=== PATIENT | male | born 2000 | race African-American/Black ===

== ENCOUNTER 2020-03-13 19:21 | Emergency (ER) | payer BC ==
[~2020-03-13] VITALS: Ht 175.3 cm; Wt 68.0 kg
[2020-03-13] MEDS ORDERED: IV NORMAL SALINE 1,000ML 1,000 ML IV SCH ×2 (19:33)
[2020-03-13 19:45] VITALS: BP 157/92
--- NOTE | 2020-03-13 19:51 | PHYS DOC ---
Past History Past Medical History: No Pertinent History Adult General Chief Complaint Chief Complaint: DEHYDRATION HPI HPI Patient is a 19-year-old male who presents for lightheadedness. 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 Patient reports playing basketball for several hours and upon completion of playing, was profoundly lightheaded, fatigued, and sweating profusely. Teammates and head track coach were concerned and subsequently transported patient to our ER for further evaluation. Of note, patient up-to-date on all vaccinations, has no known medical issues, denies any illicit substance abuse, denies any recent fever or prodromal symptoms prior to playing today, no COVID- 19 contacts Review of Systems Review of Systems Fourteen body systems of review of systems have been reviewed. See HPI for pertinent positives and negative responses, other ordonez all other systems are negative, non-pertinent or non-contributory Current Medications Current Medications Current Medications Medications (Trade) Dose Ordered Sig/Clay Start Time Stop Time Status Last Admin Dose Admin Sodium Chloride 1,000 ml @ 100 mls/hr Q10H 03/13/20 19:33 03/14/20 05:32 Allergies Allergies Allergies Coded Allergies Type Severity Reaction Last Updated Verified No Known Drug Allergies 03/13/20 No Physical Exam Physical Exam Constitutional: Well developed, well nourished, moderately distressed, diaphoretic appearing HENT: Normocephalic, atraumatic, bilateral external ears normal, oropharynx moist, no oral exudates, nose normal. Eyes: PERRLA, EOMI, conjunctiva normal, no discharge. Neck: Normal range of motion, no tenderness, supple, no stridor. Cardiovascular: Heart rate tachycardic, sinus rhythm, no murmurs rubs or gallops Lungs & Thorax: Bilateral breath sounds clear to auscultation Abdomen: Bowel sounds normal, soft, no tenderness, no masses, no pulsatile masses. Nonsurgical abdomen, no peritoneal signs Skin: Diaphoretic, clammy, no erythema, no rash. Back: No tenderness, no CVA tenderness. Extremities: No tenderness, no cyanosis, no clubbing, ROM intact, no edema. Neurologic: Alert and oriented X 3, grossly normal motor & sensory function, no focal deficits noted. Psychologic: Affect normal, judgement normal, mood normal. Current Patient Data Vital Signs Vital Signs Date Time Temp Pulse Resp B/P (MAP) Pulse Ox O2 Delivery O2 Flow Rate FiO2 03/13/20 19:45 98.6 133 24 157/92 (113) 100 Lab Results Laboratory Tests Test 03/13/20 19:23 03/13/20 22:25 03/13/20 22:50 White Blood Count 9.0 x10^3/uL (4.0-11.0) Red Blood Count 6.02 x10^6/uL (4.30-5.70) Hemoglobin 17.2 g/dL (13.0-17.5) Hematocrit 51.9 % (39.0-53.0) Mean Corpuscular Volume 86 fL (79-100) Mean Corpuscular Hemoglobin 29 pg (25-35) Mean Corpuscular Hemoglobin Concent 33 g/dL (31-37) Red Cell Distribution Width 13.5 % (11.5-14.5) Platelet Count 329 x10^3/uL (140-400) Neutrophils (%) (Auto) 68 % (31-73) Lymphocytes (%) (Auto) 23 % (24-48) Monocytes (%) (Auto) 7 % (0-9) Eosinophils (%) (Auto) 0 % (0-3) Basophils (%) (Auto) 1 % (0-3) Neutrophils # (Auto) 6.1 x10^3uL (1.8-7.7) Lymphocytes # (Auto) 2.1 x10^3/uL (1.0-4.8) Monocytes # (Auto) 0.6 x10^3/uL (0.0-1.1) Eosinophils # (Auto) 0.0 x10^3/uL (0.0-0.7) Basophils # (Auto) 0.1 x10^3/uL (0.0-0.2) Sodium Level 142 mmol/L (136-145) 139 mmol/L (136-145) Potassium Level 3.4 mmol/L (3.5-5.1) 4.6 mmol/L (3.5-5.1) Chloride Level 101 mmol/L (98-107) 106 mmol/L (98-107) Carbon Dioxide Level 14 mmol/L (21-32) 25 mmol/L (21-32) Anion Gap 27 (6-14) 8 (6-14) Blood Urea Nitrogen 13 mg/dL (8-26) 12 mg/dL (8-26) Creatinine 1.9 mg/dL (0.7-1.3) 1.2 mg/dL (0.7-1.3) Estimated GFR (Cockcroft-Gault) 55.5 94.4 BUN/Creatinine Ratio 7 (6-20) Glucose Level 109 mg/dL (70-99) 103 mg/dL (70-99) Calcium Level 10.9 mg/dL (8.5-10.1) 8.8 mg/dL (8.5-10.1) Total Bilirubin 1.2 mg/dL (0.2-1.0) Aspartate Amino Transf (AST/SGOT) 28 U/L (15-37) Alanine Aminotransferase (ALT/SGPT) 24 U/L (16-63) Alkaline Phosphatase 63 U/L (46-116) Creatine Kinase 410 U/L (39-308) Troponin I Quantitative < 0.017 ng/mL (0-0.055) Total Protein 9.0 g/dL (6.4-8.2) Albumin 5.0 g/dL (3.4-5.0) Albumin/Globulin Ratio 1.3 (1.0-1.7) Urine Collection Type Unknown Urine Color Yellow Urine Clarity Clear Urine pH 5.5 Urine Specific [place] 1.010 Urine Protein Neg (NEG-TRACE) Urine Glucose (UA) Neg mg/dL (NEG) Urine Ketones (Stick) 15 mg/dL (NEG) Urine Blood Neg (NEG) Urine Nitrite Neg (NEG) Urine Bilirubin Neg (NEG) Urine Urobilinogen Dipstick 0.2 mg/dL (0.2 mg/dL) Urine Leukocyte Esterase Neg (NEG) Urine RBC 0 /HPF (0-2) Urine WBC 1-4 /HPF (0-4) Urine Squamous Epithelial Cells Occ /LPF Urine Bacteria 0 /HPF (0-FEW) EKG EKG EKG ordered and interpreted by myself at 1950 hrs. as narrow complex tachycardia at 115 bpm, [place] 110 otherwise intervals unremarkable, right axis deviation, no STEMI Radiology/Procedures Radiology/Procedures PROCEDURE: PORTABLE CHEST 1V PORTABLE CHEST 1V History: Shortness of breath Comparison: None. Findings: Single view of the chest is submitted. There is no infiltrate, pneumothorax, or effusion. The pericardial cardiac silhouette is within normal limits in size. Impression: 1. There is no radiographic evidence of acute cardiopulmonary disease. Electronically signed by: Lane Funk MD (03/13/2020 8:02 PM) [facility] Course & Med Decision Making Course & Med Decision Making Patient seen on immediate ER arrival Airway patent, breathing mildly labored, patient tachycardic otherwise vital signs unremarkable Comprehensive history and physical exam obtained, pertinent diagnostic studies ordered IV access obtained, copious IV fluid resuscitation ensued given patient's clinical dehydrated state Patient assessed several times throughout ER visit with improvement in symptomology. Discussed findings with patient, specifically acute kidney injury findings likely due to dehydration secondary to prolonged basketball playing and he Patient tolerated IV fluid resuscitation well. Repeat kidney function showed marked improvement back to baseline levels ER course reviewed with patient, patient eager for discharge home, at this time I feel it is appropriate given that he is at his baseline state, Strict return precautions were discussed at length with patient with good understanding, all questions and concerns addressed prior to ER departure home in stable condition Dragopal Disclaimer Dragopal Disclaimer This electronic medical record was generated, in whole or in part, using a voice recognition dictation system. Departure Departure: Impression: Primary Impression: Dehydration Additional Impression: REINA (acute kidney injury) Disposition: HOME/RESIDENCE PRIOR TO ADM Condition: STABLE Referrals: PCP,NO (PCP) Patient Instructions: Dehydration-SportsMed Justification of Admission: Justification of Admission: Justification of Admission Dx: N/A Problem Qualifiers NAMITA LITTLEJOHN DO Mar 13, 2020 19:51
--- NOTE | 2020-03-13 20:05 | EKG ---
[facility] ED [address] [place] [id number] Test Date: 2020-03-13 Test Time: 19:25:40 Pat Name: HANNA ESTRADA Department: Room: Gender: M Ad Clerk: DI : [id number] Requested By: NAMITA LITTLEJOHN Order Number: [id number] Reading MD: Measurements Intervals [place] Rate: 115 P: 149 [place]: 110 QRS: 152 QRSD: 86 T: 152 QT: 312 QTc: 433 Interpretive Statements SUPRAVENTRICULAR RHYTHM LEFT ATRIAL ABNORMALITY ABNORMAL RIGHT AXIS DEVIATION QRS(T) CONTOUR ABNORMALITY CONSISTENT WITH HIGH LATERAL MYOCARDIAL DAMAGE ABNORMAL ECG RI6.02 No previous ECG available for comparison
--- NOTE | 2020-03-13 20:05 | RAD ---
PORTABLE CHEST 1V History: Shortness of breath Comparison: None. Findings: Single view of the chest is submitted. There is no infiltrate, pneumothorax, or effusion. The pericardial cardiac silhouette is within normal limits in size. Impression: 1. There is no radiographic evidence of acute cardiopulmonary disease. Electronically signed by: Lane Funk MD (03/13/2020 8:02 PM) [facility]
[2020-03-13 20:16] LABS: CALCIUM 10.9 mg/dL (8.5-10.1); CREATININE 1.9 mg/dL (0.7-1.3); GFR 55.5; POTASSIUM 3.4 mmol/L (3.5-5.1)
[2020-03-13 20:17] LABS: BASO # 0.1 x10^3/uL (0.0-0.2); BASO % 1 % (0-3); EOS % 0 % (0-3); HEMATOCRIT 51.9 % (39.0-53.0); HEMOGLOBIN 17.2 g/dL (13.0-17.5); LYMPH # 2.1 x10^3/uL (1.0-4.8); LYMPH % 23 % (24-48); MEAN CORPUSCULAR HEMOGLOBIN 29 pg (25-35); MEAN CORPUSCULAR HGB CONC 33 g/dL (31-37); MEAN CORPUSCULAR VOLUME 86 fL (79-100); MONO # 0.6 x10^3/uL (0.0-1.1); MONO % 7 % (0-9); NEUT # 6.1 x10^3uL (1.8-7.7); NEUT % 68 % (31-73); PLATELET COUNT 329 x10^3/uL (140-400); RED BLOOD COUNT 6.02 x10^6/uL (4.30-5.70); RED CELL DISTRIBUTION WIDTH 13.5 % (11.5-14.5)
[2020-03-13 20:22] LABS: ALBUMIN/GLOBULIN RATIO 1.3 (1.0-1.7); TOTAL BILIRUBIN 1.2 mg/dL (0.2-1.0)
[2020-03-13] MEDS ORDERED: IV NORMAL SALINE 500ML 500 ML IV ONE (21:30)
[2020-03-13 22:53] LABS: CALCIUM 8.8 mg/dL (8.5-10.1); CREATININE 1.2 mg/dL (0.7-1.3); GFR 94.4; POTASSIUM 4.6 mmol/L (3.5-5.1)
[2020-03-13 23:28] LABS: BACTERIA,URINE 0 /HPF (0-FEW); BILIRUBIN,URINE NEG (NEG); CLARITY,URINE CLEAR; COLOR,URINE YELLOW; GLUCOSE,URINE NEG (NEG); NITRITE,URINE NEG (NEG); RBC,URINE 0 /HPF (0-2); SQUAMOUS EPITHELIAL CELL,UR OCC /LPF; UROBILINOGEN,URINE 0.2 mg/dL (0.2 mg/dL)
== END 2020-03-13 23:40 | disposition home or self-care (01) ==
LOC: ER 19:21
DX: N17.9 Acute kidney failure, unspecified (principal); E86.0 Dehydration
CPT/HCPCS: 36415; 71045; 80048; 80053; 81001; 82550; 84484; 85025; 93005; 96360; 96361; 99285; J7030

== ENCOUNTER → 2020-07-17 | Outpatient (CLI) | payer BC | LOC: LAB 15:01 | PROVIDERS: ATTEND Nurse Practitioner Family | DX: R79.89 Other specified abnormal findings of blood chemistry (principal) | CPT/HCPCS: 36415; 84132; 84484 ==